=== PATIENT | male | born 2000 | race Caucasian/White ===

== ENCOUNTER 2018-05-30 16:20 | Emergency (ER) | payer SELFPAY ==
[~2018-05-30] VITALS: Ht 175.3 cm; Wt 69.0 kg
[2018-05-30] MEDS ORDERED: SODIUM CHLORIDE 0.9% 1,000 ML IV ONE (17:59)
[2018-05-30] MEDS ORDERED: ONDANSETRON HCL 4MG/2ML VIAL IV STA (17:59)
[2018-05-30] MEDS ORDERED: OLANZAPINE 10 MG/VIAL IM ONE (18:00)
[2018-05-30] MEDS ORDERED: LORAZEPAM 2MG/ML CPJ IV ONE (18:00)
[2018-05-30] MEDS ORDERED: BACITRACIN ZINC OINT UDPKT TOP ONE (18:15)
[2018-05-30] MEDS ORDERED: TETANUS, DIPHTHERIA, PERTUSSIS VAC/PF 0.5ML (>7YR OLD) IM ONE (18:15)
[2018-05-30 18:27] LABS: BASOPHILS % 0.1 % (0.0-2.0); HEMATOCRIT. 44.7 % (42.0-52.0); HEMOGLOBIN. 15.1 g/dL (14.0-18.0); LYMPHOCYTES % 7.1 % (20.0-50.0); MEAN CORPUSCULAR HEMOGLOBIN 28.6 pg (28.0-32.0); MEAN CORPUSCULAR VOLUME 84.5 fL (80.0-94.0); MEAN PLATELET VOLUME 9.3 fl (7.4-10.4); MONOCYTES % 6.8 % (2.0-8.0); PLATELET 252 x1000/uL (130-400); RED BLOOD CELL COUNT 5.29 mill/uL (4.7-6.1); RED CELL DISTRIBUTION WIDTH 12.7 % (11.6-14.6)
[2018-05-30 18:35] LABS: CHLORIDE 105 mEq/L (98-107)
[2018-05-30 18:40] LABS: ETHANOL BLOOD < 10 mg/dL
[2018-05-30 18:44] LABS: CREATINE KINASE 353 IU/L (39-308)
[2018-05-30 18:46] LABS: CARBAMAZEPINE < 0.5 ug/mL (4-12); PHENOBARBITAL < 2.1 ug/mL (15.0-40.0); VALPROIC ACID < 3.0 ug/mL (50-100)
[2018-05-30 20:57] LABS: CLARITY URINE CLEAR (CLEAR); COLOR URINE YELLOW (YELLOW); KETONES URINE TRACE (NEGATIVE); LEUKOCYTE ESTERASE URINE NEGATIVE (NEGATIVE); NITRITE URINE NEGATIVE (NEGATIVE); OCCULT BLOOD URINE NEGATIVE (NEGATIVE); PROTEIN URINE 1+ (NEGATIVE); SPECIFIC GRAVITY URINE 1.019 (1.005-1.030); UROBILINOGEN URINE 0.2 E.U./dL (0.2-1.0)
[2018-05-30 21:06] LABS: *AMPHETAMINES SCREEN URINE PRESUMTIVE POSITIVE (NEGATIVE)
[2018-05-30 21:07] LABS: *BARBITURATES SCREEN URINE NEGATIVE (NEGATIVE); *BENZODIAZEPINES SCREEN URINE NEGATIVE (NEGATIVE); *COCAINE SCREEN URINE PRESUMTIVE POSITIVE (NEGATIVE); CANNABINOID URINE SCREEN PRESUMTIVE POSITIVE (NEGATIVE); METHADONE URINE SCREEN NEGATIVE (NEGATIVE); OPIATES URINE SCREEN NEGATIVE (NEGATIVE); PHENCYCLIDINE URINE SCREEN NEGATIVE (NEGATIVE)
[2018-05-30] MEDS ORDERED: LORAZEPAM 1MG TABLET PO ONE (21:45)
[2018-05-30 23:00] VITALS: BP 124/80
== END 2018-05-30 23:16 | disposition home or self-care (01) ==
LOC: ER 16:56
DX: T40.5X1A Poisoning by cocaine, accidental (unintentional), initial encounter (principal); T43.621A Poisoning by amphetamines, accidental (unintentional), initial encounter; G92 Toxic encephalopathy; R00.0 Tachycardia, unspecified; R61 Generalized hyperhidrosis; R03.0 Elevated blood-pressure reading, without diagnosis of hypertension; Y92.89 Other specified places as the place of occurrence of the external cause
CPT/HCPCS: 36415; 70450; 71045; 80053; 80156; 80165; 80184; 80185; 80305; 81003; 82550; 83880; 84443; 84484; 85025; 90715; 93005; 96361; 96372; 96374; 96375; 99285; G0482; J2060; J2405; J3490; J7030